=== PATIENT | male | born 1985 | race African-American/Black ===

== ENCOUNTER 2019-02-10 02:35 | Emergency (ER) | payer OTHER ==
[~2019-02-10] VITALS: Ht 188 cm; Wt 81.6 kg
--- NOTE | 2019-02-10 02:44 | Emergency Room Report ---
History of Present Illness General Source: Patient, Friend Present Illness [facility] This is a 33-year-old male with a history of alcohol abuse and also ecstasy abuse. He presents with chief complaint of overdose. His girlfriend called 911 because he passed out. He was on the bed and became unresponsive. He wasn' t breathing very well. EMS gave him a dose of Narcan and he said respiration was improved. Another dose of Narcan was given and improved again. After the third dose, he is awake. Patient denies any symptoms. Denies any incontinence of bowel or urine. Denies any or trauma. Said that he was just sleepy. Denies any drugs or alcohol use. Girlfriend did say he was using alcohol earlier today. Both of them are at a sober living house. Allergies: Coded Allergies: No Known Allergies (Unverified , 02/10/19) Patient History Past Medical History: see triage record, old chart reviewed Past Surgical History: none Pertinent Family History: none Social History: Reports: alcohol use Immunizations: other Reviewed Nursing Documentation: PMH: Agreed; PSxH: Agreed Review of Systems Eye: Denies: eye pain, blurred vision ENT: Denies: ear pain, nose congestion, throat swelling Respiratory: Denies: cough, shortness of breath Cardiovascular: Denies: chest pain, palpitations Gastrointestinal: Denies: abdominal pain, diarrhea, nausea, vomiting Musculoskeletal: Denies: back pain, joint pain Skin: Denies: rash Neurological: Denies: headache, numbness Endocrine: Denies: increased thirst, increased urine Hematologic/Lymphatic: Denies: easy bruising All Other Systems: negative except mentioned in HPI Physical Exam vitals unremarkable Sp02 EP Interpretation: reviewed, normal General Appearance: well appearing, no apparent distress, alert Head: normocephalic, atraumatic Eyes: bilateral eye PERRL, bilateral eye EOMI ENT: hearing grossly normal, normal pharynx Neck: full range of motion, supple, no meningismus Respiratory: chest non-tender, lungs clear, normal breath sounds Cardiovascular #1: regular rate, rhythm, no murmur Gastrointestinal: normal bowel sounds, non tender, no mass, no organomegaly, no bruit, non-distended Musculoskeletal: back normal, gait/station normal, normal range of motion Neurologic: alert, oriented x3 Psychiatric: mood/affect normal Skin: warm/dry Medical Decision Making Diagnostic Impression: Primary Impression: Altered mental status Qualified Codes: R41.82 - Altered mental status, unspecified ER Course Patient with an altered mental status. There is no evidence of any opiates on his drug screen. He may have used synthetic opiates that won't show up. I doubt this was sent opiate overdose since it took 3 doses of Narcan for him to wake up. May be alcohol involved since girlfriend said he was drinking vodka earlier. Other than some vomiting here, he has no other complaint. No suicidal thoughts or homicidal thought. We'll discharge home. Status: improved Disposition: HOME, SELF-CARE Condition: Stable Scripts No Active Prescriptions or Reported Meds Patient Instructions: Syncope Additional Instructions: Abstain from any drugs or alcohol. Follow-up with your doctor in 7 days. Return if worse. Franklyn Andujar MD Feb 10, 2019 02:44
[2019-02-10 02:45] VITALS: BP 111/74
[2019-02-10 03:55] VITALS: BP 112/75
== END 2019-02-10 03:55 | disposition home or self-care (01) ==
LOC: EDBD 02:35 → EMR 02:51
DX: R41.82 Altered mental status, unspecified (principal); Z72.89 Other problems related to lifestyle
CPT/HCPCS: 80307; 96374; 99283; J2405